=== PATIENT | male | born 1970 | race Caucasian/White ===

== ENCOUNTER 2023-10-07 08:12 | Outpatient (AMB) | payer SELFPAY ==
--- NOTE | 2023-10-07 08:12 | A.OFFPC_ITS ---
Intake Visit Reasons: follow up Allergies No Known Allergies Allergy (Verified 10/07/23 08:15) HPI follow up HPI Details Patient is a 53-year-old male who was previously seen at [facility] and establishing care here. He made a more urgent appointment because last week he went to the emergency room after developing difficulty swallowing and breathing. He went to the ER on 09/29/[address] of the chest, abdomen and pelvis. He states that they noted a poorly defined hypodensity in the left lobe of the liver that does not have a typical appearance of a cyst. They recommended an MRI of the liver and a follow up with the software development leader for an endoscopy. There was some question whether there was esophageal spasm. He states the difficulty swallowing has been going on for 5-6 years and it comes and goes. It usually is triggered by eating too quickly or too much. He states it feels like there is inflammation in the esophagus and then he is unable to burp. He states it feels like fullness/pressure inside that keeps anything from coming up or going down. No regurgitation or weight loss. He states this is usually able to be controlled with his diet. He would like to see a software development leader. An endoscopy was recommended by [facility]. Telehealth Telehealth Telehealth Platform: Telephone Location of provider rendering services: practice address Location of patient: address on file Patient Identification confirmed using: Name, : Yes Telehealth method: voice only Patient verbally consented to treatment: Yes Patient verbally consented to billing insurance company: Yes Patient informed of any privacy concerns related to visit: Yes Minutes spent on Phone/Video with Pt.: 18 Assessment and Plan Assessment & Plan (1) Liver mass, left lobe: Code(s): R16.0 - Hepatomegaly, not elsewhere classified Plan: MRI ordered. Will follow up pending results. Labs ordered. (2) Dysphagia: Code(s): R13.10 - Dysphagia, unspecified Qualifiers: Dysphagia type: unspecified Qualified Code(s): R13.10 - Dysphagia, unspecified Plan: We will refer to GI. Patient would like to be seen at [place]. Referral placed. Notes requested from [facility]. Orders: Orders Liver Panel Today R13.10 - Dysphagia, unspecified, R16.0 - Hepatomegaly, not elsewhere classified, R79.89 - Other specified abnormal findings of blood chemistry TSH reflex Free T4 Today R13.10 - Dysphagia, unspecified, R16.0 - Hepatomegaly, not elsewhere classified MR abdomen wo/w con Today R13.10 - Dysphagia, unspecified, R16.0 - Hepatomegaly, not elsewhere classified Gamma Glutamyl Transpeptidase Today R13.10 - Dysphagia, unspecified, R16.0 - Hepatomegaly, not elsewhere classified, R79.89 - Other specified abnormal findings of blood chemistry Complete Blood Count Auto Diff Today R13.10 - Dysphagia, unspecified, R16.0 - Hepatomegaly, not elsewhere classified Basic Metabolic Panel Today R13.10 - Dysphagia, unspecified, R16.0 - Hepatomegaly, not elsewhere classified Referrals Gastroenterology Referral R13.10 - Dysphagia, unspecified, R16.0 - Hep atomegaly, not elsewhere classified Coding Level of Care Code Tele Est Pt Level 3 (58959) Diagnoses Liver mass, left lobe R16.0 Dysphagia, unspecified type R13.10 Dysphagia type: unspecified
== END 2023-10-07 13:04 | disposition home or self-care (01) ==
LOC: HO.HMGFM 08:13
PROVIDERS: PCP Physician Assistant; Visit Provider Physician Assistant
DX: R16.0 Hepatomegaly, not elsewhere classified (principal); R13.10 Dysphagia, unspecified
CPT/HCPCS: 99213

== ENCOUNTER 2023-10-19 16:00 | Outpatient (REF) | payer OTHER, SELFPAY ==
[2023-10-19 16:26] LABS: MANUAL DIFF FLAG NO
[2023-10-19 17:16] LABS: Alanine Aminotransferase 22 U/L (0-40); Albumin Level 4.7 g/dL (3.5-5.0); Alkaline Phosphatase 85 U/L (39-117); Anion Gap 12 (12-20); Aspartate Amino Transferase 21 U/L (5-37); Bilirubin Direct 0.1 mg/dL (0.0-0.5); Bilirubin Total 0.6 mg/dL (0.0-1.0); Blood Urea Nitrogen 19 mg/dL (9-16); Calcium 9.7 mg/dL (8.4-10.2); Carbon Dioxide 27 mmol/L (22-29); Chloride 104 mmol/L (96-108); Estimated Glomerular Filt Rate > 60; Gamma Glutamyl Transpeptidase 34 U/L (11-51); Glucose Random 97 mg/dL (60-115); Potassium 4.4 mmol/L (3.3-5.1); Sodium 139 mmol/L (135-145); Total Protein 7.6 g/dL (6.5-8.0)
[2023-10-19 17:30] LABS: TSH reflex Free T4 2.31 uIU/mL (0.32-4.0)
[2023-10-19 17:38] LABS: Basophils Percent Auto 0.4 % (0-2); Eosinophils Absolute Auto 0.1 X10*3/uL (0.0-0.4); Hematocrit 41.4 % (42.0-52.0); Hemoglobin 14.5 g/dl (14.0-18.0); Imm Gran Abs Auto 0.02 X10*3/uL (0.00-0.03); Imm Gran Pct Auto 0.3 % (0.0-0.4); Lymphocytes Absolute Auto 2.2 X10*3/uL (1.2-4.9); Lymphocytes Percent Auto 30.3 % (20-40); Mean Corpuscular Hemoglobin 31.8 pg (27.0-33.0); Mean Corpuscular Volume 90.8 fL (80.0-98.0); Mean Platelet Volume 14.2 fL (9.4-12.4); Monocytes Absolute Auto 0.5 X10*3/uL (0.1-1.2); Monocytes Percent Auto 7.5 % (2-11); Neutrophils Absolute Auto 4.3 x10*3/uL (2.0-8.3); Neutrophils Percent Auto 59.5 % (45-73); Platelet Count 123 X10*3/uL (160-400); Red Blood Count 4.56 X10*6/uL (4.60-5.80); Red Cell Distribution Width 13.1 % (11.0-16.0); White Blood Count 7.2 X10*3/uL (4.8-10.8)
== END 2023-10-19 16:01 | disposition home or self-care (01) ==
LOC: HO.LAB 16:00
PROVIDERS: PCP Physician Assistant; Visit Provider Physician Assistant
DX: R13.10 Dysphagia, unspecified (principal); R16.0 Hepatomegaly, not elsewhere classified; R79.89 Other specified abnormal findings of blood chemistry
CPT/HCPCS: 36415; 80048; 80076; 82977; 84443; 85025